=== PATIENT | female | born 1965 | race Caucasian/White ===

== ENCOUNTER 2019-02-26 19:51 | Emergency (ER) | payer BC ==
[2019-02-26 19:56] VITALS: BP 153/98; PULSE 106; TEMP 98.5; BMI 37.4
--- NOTE | 2019-02-26 19:56 | PDOC ---
Rapid Medical Evaluation Time Seen by Provider: 02/26/19 19:53 Medical Evaluation: Allergies Allergy/AdvReac Type Severity Reaction Status Date / Time Penicillins Allergy Verified 08/23/15 11:18 02/26/19 19:54 I have performed a brief in-person evaluation of this patient. The patient presents with a chief complaint of: Bleeding from ankle wound today after removing scab, now has pressure dressing in place. H/o venous stasis, varicose veins, s/p procedures to b/l LE Pertinent physical exam findings:Well jose and stable, defer rest of exam to ED provider I have ordered the following:nothing The patient will proceed to the ED for further evaluation. Discharge Disposition - Diagnosis Wound of ankle Qualifiers: Encounter type: initial encounter Laterality: right Qualified Code(s): S91.001A - Unspecified open wound, right ankle, initial encounter - Referrals - Patient Instructions - Post Discharge Activity
[2019-02-26] MEDS ORDERED: LIDOCAINE HCL 1%, 10 MG/ML (20ML VIAL) ONE (20:40)
--- NOTE | 2019-02-26 21:07 | PDOC ---
History of Present Illness - General Chief Complaint: Laceration Stated Complaint: BLEEDING ON THE RIGHT LEG Time Seen by Provider: 02/26/19 19:53 - History of Present Illness Initial Comments: 02/26/19 21:03 53-year-old female without comorbidities presents for evaluation of bleeding after she picked the scab off of the varicosity in her right ankle. She controlled bleeding at home with direct pressure and a compression wrap and came to the ER for further evaluation Past History - Past Medical History Allergies/Adverse Reactions: Allergies Allergy/AdvReac Type Severity Reaction Status Date / Time Penicillins Allergy Verified 02/26/19 20:34 Home Medications: Ambulatory Orders NK [No Known Home Medication] 08/23/15 COPD: No - Immunization History Immunization Up to Date: Yes - Suicide/Smoking/Psychosocial Hx Smoking History: Never smoked Hx Alcohol Use: No Drug/Substance Use Hx: No Substance Use Type: None Review of Systems - Review of Systems Hematologic/Lymphatic: Yes: See HPI *Physical Exam - Vital Signs Last Vital Signs Temp Pulse Resp BP Pulse Ox 98.5 F 106 H 20 153/98 98 02/26/19 19:53 02/26/19 19:53 02/26/19 19:53 02/26/19 19:53 02/26/19 19:53 - Physical Exam Comments: 02/26/19 21:04 Right ankle skin color and temperature are normal. There is a bleeding varicosity projecting blood about 6 inches from the skin on the lateral aspect of the R ankle Neurovascularly intact otherwise. Medical Decision Making - Medical Decision Making 02/26/19 21:05 The area was sterilely injected with 1 mL of 1% lidocaine with epinephrine and cauterized with silver nitrate. Telfa pad was applied as well as dry sterile course hemostasis was obtained prior to Telfa application an Dashawn wrap was loosely applied to hold the dressings in place. Discussed the need for vascular surgery follow-up. *DC/Admit/Observation/Transfer Diagnosis at time of Disposition: Wound of ankle Qualifiers: Encounter type: initial encounter Laterality: right Qualified Code(s): S91.001A - Unspecified open wound, right ankle, initial encounter - Discharge Dispostion Disposition: HOME Condition at time of disposition: Stable Decision to Admit order: No - Referrals Referrals: Daniel Silva MD [Primary Care Provider] - Esteban Joshi MD [Non Staff, Medical] - - Patient Instructions Additional Instructions: Please leave the dressing in place for the next 48 hours. After 48 hours or may remove the dressing and gently wash the area with soap and water. Follow-up with vascular surgery in 1-2 days for further evaluation and treatment options. Return to the emergency room for worsening symptoms. Avoid anti-inflammatories and aspirin until seen by vascular surgery. - Post Discharge Activity
== END 2019-02-26 21:24 | disposition home or self-care (01) ==
LOC: JERFT 19:51
PROC: 0Y3 Anatomical Regions, Lower Extremities, Control (ICD-10-PCS; principal; 2019-02-26)
PROC: 0HQKXZZ Repair Right Lower Leg Skin, External Approach (ICD-10-PCS; 2019-02-26)
DX: S91.001A Unspecified open wound, right ankle, initial encounter (principal); I83.891 Varicose veins of right lower extremity with other complications; Z88.0 Allergy status to penicillin; X58.XXXA Exposure to other specified factors, initial encounter; Y93.89 Activity, other specified; Y92.89 Other specified places as the place of occurrence of the external cause; Y99.8 Other external cause status
CPT/HCPCS: 99281-25

== ENCOUNTER 2021-05-12 05:30 | Day surgery (SDC) | payer BC ==
[2021-05-07 12:59] VITALS: BMI 39.1
[2021-05-12] MEDS ORDERED: BUPIVACAINE HCL/PF 0.25% (2.5MG/ML) 10 ML VIAL ONE (09:22)
[2021-05-12] MEDS ORDERED: ONDANSETRON 4 MG/2 ML VIAL IVPUSH PRN ×2 (10:13→16:14)
[2021-05-12] MEDS ORDERED: MIDAZOLAM HCL 2 MG/2 ML SINGLE DOSE VIAL ONE (10:18)
[2021-05-12] MEDS ORDERED: metroNIDAZOLE 250 MG/50 ML PREMIX BAG IVPB ONE (10:25)
[2021-05-12] MEDS ORDERED: oxyCODONE HCL 5 MG TABLET PO PRN (11:17)
[2021-05-12] MEDS ORDERED: IBUPROFEN 600 MG TABLET (FP) PO PRN (11:17)
[2021-05-12] MEDS ORDERED: IBUPROFEN 800 MG/8 ML IJ IVPB PRN (11:17)
[2021-05-12] MEDS ORDERED: ELECTROLYTE-148 SOLN 1,000 ML IV SCH (11:30)
[2021-05-12 14:57] VITALS: BP 116/70; PULSE 70; TEMP 97.8
== END 2021-05-12 14:57 | disposition home or self-care (01) ==
LOC: JASU-SURG 05:30
PROVIDERS: ATTEND Obstetrics & Gynecology
PROC: 0UBC8ZX Excision of Cervix, Via Natural or Artificial Opening Endoscopic, Diagnostic (ICD-10-PCS; principal; 2021-05-12 09:00)
PROC: 0UB98ZX Excision of Uterus, Via Natural or Artificial Opening Endoscopic, Diagnostic (ICD-10-PCS; 2021-05-12 09:00)
DX: N95.0 Postmenopausal bleeding (principal); N84.0 Polyp of corpus uteri; N84.1 Polyp of cervix uteri
CPT/HCPCS: 88305-TC; 94760